=== PATIENT | female | born 1990 | race Caucasian/White ===

== ENCOUNTER 2018-04-09 00:27 | Inpatient (IN) | payer BC ==
[2018-04-09] MEDS ORDERED: Ampicillin 2 GM in Sodium Chloride 0.9% 100 ML IV ONE (02:35)
[2018-04-09] MEDS: Lactated Ringers 1,000 ML IV SCH ×2 (02:57→07:12)
[2018-04-09] MEDS: Sodium Chloride 0.9% 10 ML Syringe FLUSH PRN ×2 (03:00→11:46)
[2018-04-09] MEDS ORDERED: Scopolamine 1.5 MG Transdermal Patch ONE (06:06)
[2018-04-09] MEDS ORDERED: Ampicillin 1 GM in Sodium Chloride 0.9% 50 ML IV SCH (07:00)
[2018-04-09] MEDS: Ampicillin 1 GM Vial ONE ×2 (07:13→07:15)
[2018-04-09] MEDS: Ampicillin 1 GM in Sodium Chloride 0.9% 50 ML IV SCH ×2 (07:14→11:47)
[2018-04-09] MEDS ORDERED: ePHEDrine 50 MG/ML SDV IVPUSH PRN (07:22)
[2018-04-09] MEDS ORDERED: Scopolamine 1.5 MG Transdermal Patch TOP ONE (07:22)
[2018-04-09] MEDS ORDERED: Naloxone 0.4 MG/ML SDV IVPUSH PRN (07:22)
[2018-04-09] MEDS ORDERED: Ondansetron 4 MG/2 ML SDV IVPUSH PRN (07:22)
[2018-04-09] MEDS ORDERED: diphenhydrAMINE 50 MG/ML SDV IVPUSH PRN (07:22)
[2018-04-09] MEDS ORDERED: diphenhydrAMINE 50 MG/ML SDV IV PRN (07:22)
[2018-04-09] MEDS ORDERED: Naltrexone 50 MG Tab PO PRN (07:22)
[2018-04-09] MEDS ORDERED: Nalbuphine 10 MG/1 ML Vial IVPUSH PRN (07:22)
[2018-04-09] MEDS ORDERED: Famotidine/Normal Saline 20 MG in Premix Bag 1 BAG IV PRN (07:22)
[2018-04-09] MEDS ORDERED: Lactated Ringers 500 ML IV SCH ×2 (07:30)
[2018-04-09] MEDS ORDERED: Oxytocin 10 Units/1 ML SDV IM ONE (08:30)
[2018-04-09] MEDS ORDERED: Lidocaine 1% 20 ML MDV INJECT ONE (08:30)
[2018-04-09] MEDS: Ibuprofen 600 MG Tab PO PRN ×2 (09:20→15:43)
--- NOTE | 2018-04-09 12:42 | PCM.DEL ---
L & D Note - General Info Date of Service: 04/09/18 - Delivery Note Labor: Spontaneous Delivery Outcome: Livebirth Delivery Mode: Spontaneous Presentation: Left Occiput Anterior (CHEVY) Nuchal Cord: None Anesthesia Type: Intrathecal, Local Anesthetic: Lidocaine (Xylocaine) 0.5% Plain Local Anesthetic Volume: 5cc Amniotic Fluid Description: Clear Episiotomy Type: None Laceration: 2nd Degree Suture type: Vicryl Suture size: 4-0 Placenta: Intact Cord: 3 Vessels Resuscitation Needed: No : Bulb Syringe - General Info Date of Service: 04/09/18 Admission Dx/Problem (Free Text): 28-year-old 40 weeks comes in spontaneous labor. She's croupy positive was given ampicillin per protocol. Had spontaneous rupture memories and delivered a healthy baby boy in the CHEVY position. No nuchal cord. Blood loss less than 500. - Patient Data Vitals - Most Recent: Last Vital Signs Temp 97.6 F 04/09/18 00:31 Pulse 52 L 04/09/18 07:00 Resp 20 04/09/18 07:00 BP 114/66 04/09/18 07:00 Pulse Ox 99 04/09/18 07:00 Weight - Most Recent: 154 lb I&O - Last 24 Hours: Intake & Output 04/08/18 04/09/18 04/09/18 22:59 06:59 14:59 Intake Total 807 Balance 807 Med Orders - Current: Current Medications Acetaminophen/Codeine Phosphate (Tylenol With Codeine No.3 300mg/30mg) 1 tab PO Q6H PRN PRN Reason: Pain Diphenhydramine HCl (Benadryl) 25 mg IVPUSH ASDIRECTED PRN PRN Reason: EXTRAPYRAMIDAL SIDE EFFECTS Diphenhydramine HCl (Benadryl) 25 mg IV ASDIRECTED PRN PRN Reason: PRURITUS Ephedrine Sulfate (Ephedrine Sulfate) 0 mg IVPUSH ASDIRECTED PRN PRN Reason: Hypotension Lactated Ringer's (Ringers, Lactated) 1,000 mls @ 125 mls/hr IV ASDIRECTED [facility] Last Admin: 04/09/18 07:12 Dose: 125 mls/hr Ampicillin Sodium 1 gm/ Sodium (Chloride) 50 mls @ 100 mls/hr IV Q4H [facility] Last Admin: 04/09/18 11:47 Dose: Not Given Famotidine 20 mg/ Premix 50 mls @ 100 mls/hr IV ONETIME PRN PRN Reason: PRURITIS Lactated Ringer's (Ringers, Lactated) 500 mls @ 999 mls/hr IV .SEECOMMENT JOHN Lactated Ringer's (Ringers, Lactated) 500 mls @ 999 mls/hr IV BOLUS [facility] Ibuprofen (Motrin) 600 mg PO Q6H PRN PRN Reason: Pain Last Admin: 04/09/18 09:20 Dose: 600 mg Miscellaneous Information (Remove Patch) 1 ea TRDERM ASDIRECTED JOHN Nalbuphine HCl (Nubain) 10 mg IVPUSH Q1H PRN PRN Reason: PRURITUS Naloxone HCl (Narcan) 0.1 mg IVPUSH ASDIRECTED PRN PRN Reason: Respiratory Depression Naltrexone HCl (Naltrexone) 25 mg PO ASDIRECTED PRN PRN Reason: REVERSAL Last Admin: 04/09/18 09:17 Dose: 25 mg Ondansetron HCl (Zofran) 4 mg IVPUSH Q4H PRN PRN Reason: Nausea/Vomiting Sodium Chloride (Saline Flush) 10 ml FLUSH ASDIRECTED PRN PRN Reason: Other Last Admin: 04/09/18 11:46 Dose: 10 ml Discontinued Medications Ampicillin Sodium (Ampicillin) Confirm Administered Dose 1 gm .ROUTE .STK-MED ONE Stop: 04/09/18 06:56 Last Admin: 04/09/18 07:15 Dose: Not Given Ampicillin Sodium 2 gm/ Sodium (Chloride) 100 mls @ 200 mls/hr IV ONETIME ONE Stop: 04/09/18 03:04 Last Admin: 04/09/18 03:03 Dose: 200 mls/hr Ampicillin Sodium 1 gm/ Sodium (Chloride) 50 mls @ 100 mls/hr IV Q4H [facility] Scopolamine (Transderm-Scop) Confirm Administered Dose 1.5 mg .ROUTE .STK-MED ONE Stop: 04/09/18 06:07 Last Admin: 04/09/18 07:32 Dose: Not Given Scopolamine (Transderm-Scop) 1.5 mg TOP ONETIME ONE Stop: 04/09/18 07:23 Last Admin: 04/09/18 06:27 Dose: 1.5 mg - Exam General: Alert, Oriented, Cooperative Lungs: Normal Respiratory Effort - Problem List & Annotations (1) Vaginal delivery SNOMED Code(s): 252430311 Code(s): O80 - ENCOUNTER FOR FULL-TERM UNCOMPLICATED DELIVERY Status: Acute Current Visit: Yes (2) Group beta Strep positive SNOMED Code(s): 6879531514601, 3162120325455 Code(s): B95.1 - STREPTOCOCCUS, GROUP B, CAUSING DISEASES CLASSD ELSWHR Status: Acute Current Visit: Yes - Problem List Review Problem List Initiated/Reviewed/Updated: Yes - My Orders Last 24 Hours: My Active Orders 04/09/18 00:33 Admission Status [Patient Status] [ADT] Routine 04/09/18 02:45 Lactated Ringers [Ringers, Lactated] 1,000 ml IV ASDIRECTED 04/09/18 03:00 Admission Status [Patient Status] [ADT] Routine Sodium Chloride 0.9% [Saline Flush] 10 ml FLUSH ASDIRECTED PRN 04/09/18 07:00 Ampicillin 1 gm Sodium Chloride 0.9% [Normal Saline] 50 ml IV Q4H 04/09/18 08:55 Patient Status [ADT] Routine May Shower [RC] ASDIRECTED Up ad Aniket [RC] ASDIRECTED Vital Signs [RC] PFP Nothing Per Rectum [WOMSER] Per Unit Routine Resuscitation Status Routine 04/09/18 08:56 Ice Therapy [OM.PC] Per Unit Routine Perineal Care [OM.PC] Per Unit Routine Peripheral IV Discontinue [OM.PC] Routine Sitz Bath [OM.PC] Per Unit Routine 04/09/18 08:57 Acetaminophen/Codeine [Tylenol with Codeine No.3 300MG/30MG] 1 tab PO Q6H PRN Ibuprofen [Motrin] 600 mg PO Q6H PRN 04/10/18 05:11 HEMOGLOBIN/HEMATOCRIT,HH [HEME] AM - Plan Plan:: 1. Admit for . 2. Full code 3. Hemoglobin and hematocrit in a.m. 4. Up ad aniket. 5. Regular diet. 6. Patient states she'll breast-feed. 7. Normal care.
[2018-04-09] MEDS ORDERED: fentaNYL 100 MCG/2 ML SDV IV ONE (13:39)
[2018-04-09] MEDS ORDERED: Morphine PF 10 MG/10 ML SDV EPIDUR ONE (13:39)
[2018-04-09] MEDS: Acetaminophen/Codeine 300-30 MG Tab PO PRN (15:43)
[2018-04-09] MEDS ORDERED: Calcium Carbonate 500 MG Tab.Chew PO PRN (19:33)
[2018-04-10] MEDS: Acetaminophen/Codeine 300-30 MG Tab PO PRN ×2 (00:14→08:44)
[2018-04-10] MEDS: Ibuprofen 600 MG Tab PO PRN ×2 (06:53→13:02)
--- NOTE | 2018-04-10 07:26 | PCM.PNPP ---
- General Info Date of Service: 04/10/18 Admission Dx/Problem (Free Text): She states she has a little bit of a headache today and just received some medication. Bleeding slowing and abdominal cramping is improved. She has no other concerns today. - Patient Data Vital Signs - Most Recent: Last Vital Signs Temp 98.6 F 04/10/18 00:00 Pulse 50 L 04/10/18 00:00 Resp 20 04/10/18 00:00 BP 114/61 04/10/18 00:00 Pulse Ox 98 04/10/18 00:00 Weight - Most Recent: 154 lb I&O - Last 24 Hours: Intake & Output 04/09/18 04/10/18 04/10/18 22:59 06:59 14:59 Intake Total 1000 1600 Balance 1000 1600 Lab Results - Last 24 Hours: Laboratory Results - last 24 hr 04/10/18 Range/Units 06:50 Hgb 11.3 L (11.5-15.5) g/dL Hct 33.8 (30.0-51.3) % Med Orders - Current: Current Medications Acetaminophen/Codeine Phosphate (Tylenol With Codeine No.3 300mg/30mg) 1 tab PO Q6H PRN PRN Reason: Pain Last Admin: 04/10/18 00:14 Dose: 1 tab Calcium Carbonate/Glycine (Tums) 1,000 mg PO Q2H PRN PRN Reason: Indigestion Ibuprofen (Motrin) 600 mg PO Q6H PRN PRN Reason: Pain Last Admin: 04/10/18 06:53 Dose: 600 mg Discontinued Medications Ampicillin Sodium (Ampicillin) Confirm Administered Dose 1 gm .ROUTE .STK-MED ONE Stop: 04/09/18 06:56 Last Admin: 04/09/18 07:15 Dose: Not Given Diphenhydramine HCl (Benadryl) 25 mg IVPUSH ASDIRECTED PRN PRN Reason: EXTRAPYRAMIDAL SIDE EFFECTS Diphenhydramine HCl (Benadryl) 25 mg IV ASDIRECTED PRN PRN Reason: PRURITUS Ephedrine Sulfate (Ephedrine Sulfate) 0 mg IVPUSH ASDIRECTED PRN PRN Reason: Hypotension Ampicillin Sodium 2 gm/ Sodium (Chloride) 100 mls @ 200 mls/hr IV ONETIME ONE Stop: 04/09/18 03:04 Last Admin: 04/09/18 03:03 Dose: 200 mls/hr Lactated Ringer's (Ringers, Lactated) 1,000 mls @ 125 mls/hr IV ASDIRECTED [facility] Stop: 04/09/18 12:00 Last Admin: 04/09/18 07:12 Dose: 125 mls/hr Ampicillin Sodium 1 gm/ Sodium (Chloride) 50 mls @ 100 mls/hr IV Q4H [facility] Ampicillin Sodium 1 gm/ Sodium (Chloride) 50 mls @ 100 mls/hr IV Q4H [facility] Stop: 04/09/18 08:30 Last Admin: 04/09/18 11:47 Dose: Not Given Famotidine 20 mg/ Premix 50 mls @ 100 mls/hr IV ONETIME PRN PRN Reason: PRURITIS Lactated Ringer's (Ringers, Lactated) 500 mls @ 999 mls/hr IV .SEECOMMENT [facility] Lactated Ringer's (Ringers, Lactated) 500 mls @ 999 mls/hr IV BOLUS [facility] Lidocaine HCl (Xylocaine 1%) 20 ml INJECT ONETIME ONE Stop: 04/09/18 08:31 Last Admin: 04/09/18 08:30 Dose: 20 ml Miscellaneous Information (Remove Patch) 1 ea TRDERM ASDIRECTED [facility] Nalbuphine HCl (Nubain) 10 mg IVPUSH Q1H PRN PRN Reason: PRURITUS Naloxone HCl (Narcan) 0.1 mg IVPUSH ASDIRECTED PRN PRN Reason: Respiratory Depression Naltrexone HCl (Naltrexone) 25 mg PO ASDIRECTED PRN PRN Reason: REVERSAL Last Admin: 04/09/18 09:17 Dose: 25 mg Ondansetron HCl (Zofran) 4 mg IVPUSH Q4H PRN PRN Reason: Nausea/Vomiting Oxytocin (Pitocin) 10 unit IM ONETIME ONE Stop: 04/09/18 08:31 Last Admin: 04/09/18 08:30 Dose: 10 unit Scopolamine (Transderm-Scop) Confirm Administered Dose 1.5 mg .ROUTE .STK-MED ONE Stop: 04/09/18 06:07 Last Admin: 04/09/18 07:32 Dose: Not Given Scopolamine (Transderm-Scop) 1.5 mg TOP ONETIME ONE Stop: 04/09/18 07:23 Last Admin: 04/09/18 06:27 Dose: 1.5 mg Sodium Chloride (Saline Flush) 10 ml FLUSH ASDIRECTED PRN PRN Reason: Other Last Admin: 04/09/18 11:46 Dose: 10 ml - Interaction Disposition, : in Room with Family Support Person: - Recovery Exam Fundal Tone: Firm Fundal Level: At Umbilicus Fundal Placement: Midline Lochia Amount: Small Lochia Color: Rubra/Red Perineum Description: Edematous Episiotomy/Laceration: Approximated Bladder Status: Voiding Urinary Elimination: Voided - Exam General: Alert, Oriented Lungs: Normal Respiratory Effort GI/Abdominal Exam: Other (On this is from.) Extremities: No Pedal Edema - Problem List & Annotations (1) Vaginal delivery SNOMED Code(s): 037198376 Code(s): O80 - ENCOUNTER FOR FULL-TERM UNCOMPLICATED DELIVERY Status: Acute Current Visit: Yes (2) Group beta Strep positive SNOMED Code(s): 5393956705014, 5661212026338 Code(s): B95.1 - STREPTOCOCCUS, GROUP B, CAUSING DISEASES CLASSD ELSWHR Status: Acute Current Visit: Yes - Problem List Review Problem List Initiated/Reviewed/Updated: Yes - My Orders Last 24 Hours: My Active Orders 04/09/18 08:55 Patient Status [ADT] Routine May Shower [RC] ASDIRECTED Up ad Trisha [RC] ASDIRECTED Vital Signs [RC] PFP Nothing Per Rectum [WOMSER] Per Unit Routine Resuscitation Status Routine 04/09/18 08:56 Ice Therapy [OM.PC] Per Unit Routine Perineal Care [OM.PC] Per Unit Routine Peripheral IV Discontinue [OM.PC] Routine Sitz Bath [OM.PC] Per Unit Routine 04/09/18 08:57 Acetaminophen/Codeine [Tylenol with Codeine No.3 300MG/30MG] 1 tab PO Q6H PRN Ibuprofen [Motrin] 600 mg PO Q6H PRN 04/09/18 19:33 Calcium Carbonate [Tums] 1,000 mg PO Q2H PRN - Plan Plan:: Continue current care.
[2018-04-10] MEDS: Acetaminophen/Aspirin/Caffeine 250-250-65 MG Tab PO PRN (19:48)
--- NOTE | 2018-04-10 20:48 | PCM.SN ---
- Free Text/Narrative Note: Visited patient this evening regaurding headache that started yesterday afternoon.Patient received spinal anesthetic yesterday AM and has a history of migraine headaches and states headache is similar to her migraines except there is also a neck component to her discomfort.Patient is able to be up and about, presently taking a bath,though headache is less when lieing down.Orders of lyrica placed and also excedrin(Excedrin is what she takes for her migraines) .Encouraged fluid intake and caffeine.Will visit patient again in AM.
[2018-04-10] MEDS: Pregabalin 50 MG Cap PO SCH (21:13)
[2018-04-11] MEDS: Acetaminophen/Codeine 300-30 MG Tab PO PRN ×2 (01:21→09:58)
--- NOTE | 2018-04-11 08:38 | PCM.PNPP ---
- General Info Date of Service: 04/11/18 Admission Dx/Problem (Free Text): Visions had a mild headache. Anesthesia did see her and gave her some Lyrica. Headaches improving with Excedrin. She thinks is a migraine. She has no other concerns. Bleeding slowing no leg swelling or abdominal cramping. - Patient Data Vital Signs - Most Recent: Last Vital Signs Temp 98.1 F 04/11/18 00:00 Pulse 65 04/11/18 00:00 Resp 20 04/11/18 00:00 BP 110/58 L 04/11/18 00:00 Pulse Ox 97 04/11/18 00:00 Weight - Most Recent: 154 lb Med Orders - Current: Current Medications Acetaminophen/Aspirin/Caffeine (Excedrin Extra Strength) 1 tab PO Q4H PRN PRN Reason: Headache Last Admin: 04/10/18 19:48 Dose: 1 tab Acetaminophen/Codeine Phosphate (Tylenol With Codeine No.3 300mg/30mg) 1 tab PO Q6H PRN PRN Reason: Pain Last Admin: 04/11/18 01:21 Dose: 1 tab Calcium Carbonate/Glycine (Tums) 1,000 mg PO Q2H PRN PRN Reason: Indigestion Ibuprofen (Motrin) 600 mg PO Q6H PRN PRN Reason: Pain Last Admin: 04/10/18 13:02 Dose: 600 mg Pregabalin (Lyrica) 50 mg PO TID JOHN Last Admin: 04/10/18 21:13 Dose: 50 mg Discontinued Medications Ampicillin Sodium (Ampicillin) Confirm Administered Dose 1 gm .ROUTE .STK-MED ONE Stop: 04/09/18 06:56 Last Admin: 04/09/18 07:15 Dose: Not Given Diphenhydramine HCl (Benadryl) 25 mg IVPUSH ASDIRECTED PRN PRN Reason: EXTRAPYRAMIDAL SIDE EFFECTS Diphenhydramine HCl (Benadryl) 25 mg IV ASDIRECTED PRN PRN Reason: PRURITUS Ephedrine Sulfate (Ephedrine Sulfate) 0 mg IVPUSH ASDIRECTED PRN PRN Reason: Hypotension Ampicillin Sodium 2 gm/ Sodium (Chloride) 100 mls @ 200 mls/hr IV ONETIME ONE Stop: 04/09/18 03:04 Last Admin: 04/09/18 03:03 Dose: 200 mls/hr Lactated Ringer's (Ringers, Lactated) 1,000 mls @ 125 mls/hr IV ASDIRECTED [facility] Stop: 04/09/18 12:00 Last Admin: 04/09/18 07:12 Dose: 125 mls/hr Ampicillin Sodium 1 gm/ Sodium (Chloride) 50 mls @ 100 mls/hr IV Q4H [facility] Ampicillin Sodium 1 gm/ Sodium (Chloride) 50 mls @ 100 mls/hr IV Q4H [facility] Stop: 04/09/18 08:30 Last Admin: 04/09/18 11:47 Dose: Not Given Famotidine 20 mg/ Premix 50 mls @ 100 mls/hr IV ONETIME PRN PRN Reason: PRURITIS Lactated Ringer's (Ringers, Lactated) 500 mls @ 999 mls/hr IV .SEECOMMENT [facility] Lactated Ringer's (Ringers, Lactated) 500 mls @ 999 mls/hr IV BOLUS [facility] Lidocaine HCl (Xylocaine 1%) 20 ml INJECT ONETIME ONE Stop: 04/09/18 08:31 Last Admin: 04/09/18 08:30 Dose: 20 ml Miscellaneous Information (Remove Patch) 1 ea TRDERM ASDIRECTED [facility] Nalbuphine HCl (Nubain) 10 mg IVPUSH Q1H PRN PRN Reason: PRURITUS Naloxone HCl (Narcan) 0.1 mg IVPUSH ASDIRECTED PRN PRN Reason: Respiratory Depression Naltrexone HCl (Naltrexone) 25 mg PO ASDIRECTED PRN PRN Reason: REVERSAL Last Admin: 04/09/18 09:17 Dose: 25 mg Ondansetron HCl (Zofran) 4 mg IVPUSH Q4H PRN PRN Reason: Nausea/Vomiting Oxytocin (Pitocin) 10 unit IM ONETIME ONE Stop: 04/09/18 08:31 Last Admin: 04/09/18 08:30 Dose: 10 unit Scopolamine (Transderm-Scop) Confirm Administered Dose 1.5 mg .ROUTE .STK-MED ONE Stop: 04/09/18 06:07 Last Admin: 04/09/18 07:32 Dose: Not Given Scopolamine (Transderm-Scop) 1.5 mg TOP ONETIME ONE Stop: 04/09/18 07:23 Last Admin: 04/09/18 06:27 Dose: 1.5 mg Sodium Chloride (Saline Flush) 10 ml FLUSH ASDIRECTED PRN PRN Reason: Other Last Admin: 04/09/18 11:46 Dose: 10 ml - Infant Interaction Disposition, : in Room with Family Support Person: - Recovery Exam Fundal Tone: Firm Fundal Level: 2 Fingerbreadths Below Umbilicus Fundal Placement: Midline Lochia Amount: Small Lochia Color: Rubra/Red Perineum Description: Redness, Edematous Episiotomy/Laceration: Approximated Bladder Status: Voiding Urinary Elimination: Voided - Exam General: Alert, Oriented Neck: Supple GI/Abdominal Exam: Other (Fundus gravid) Extremities: No Pedal Edema - Problem List & Annotations (1) Vaginal delivery SNOMED Code(s): 977946036 Code(s): O80 - ENCOUNTER FOR FULL-TERM UNCOMPLICATED DELIVERY Status: Acute Current Visit: Yes (2) Group beta Strep positive SNOMED Code(s): 1132591853352, 7647321318694 Code(s): B95.1 - STREPTOCOCCUS, GROUP B, CAUSING DISEASES CLASSD ELSWHR Status: Acute Current Visit: Yes - Problem List Review Problem List Initiated/Reviewed/Updated: Yes - My Orders Last 24 Hours: My Active Orders 04/11/18 08:06 Ready for Discharge [RC] PER UNIT ROUTINE - Plan Plan:: Discharged home. Recheck in 6 weeks for care.
--- NOTE | 2018-04-11 08:40 | PCM.DCSUM1 ---
Discharge Summary - Hospital Course Free Text/Narrative:: Hospital course-patient did well. Post day one hemoglobin was over 11. She'll little bit of a headache that was controlled with ibuprofen, or Tylenol or Excedrin. Did have anesthesia see her and they ordered Lyrica 1. Patient' s headache was controlled enough with the medication will discharge home. She had no problems with she was here. Brief History: 28-year-old group A positive came in spontaneous labor with spontaneous rupture membranes. She was treated with ampicillin per protocol and had a normal male child. Please see delivery note. Diagnosis: Stroke: No - Discharge Data Discharge Date: 04/11/18 Discharge Disposition: Home, Self-Care 01 Condition: Good - Discharge Diagnosis/Problem(s) (1) Vaginal delivery SNOMED Code(s): 353313773 ICD Code: O80 - ENCOUNTER FOR FULL-TERM UNCOMPLICATED DELIVERY Status: Acute Current Visit: Yes (2) Group beta Strep positive SNOMED Code(s): 8360990992289, 1651963237953 ICD Code: B95.1 - STREPTOCOCCUS, GROUP B, CAUSING DISEASES CLASSD ELSWHR Status: Acute Current Visit: Yes - Patient Instructions Diet: Regular Diet as Tolerated Activity: As Tolerated Driving: May Drive Today Showering/Bathing: May Shower Other/Special Instructions: 1. recheck in 6 weeks for . - Discharge Plan Home Medications: Home Meds Ibuprofen [Motrin] 600 mg PO Q6H PRN tablet 04/11/18 [Rx] Patient Handouts: What You Need to Know About Infant Formula Feeding, Depression, Baby Blues, Home Care Instructions for Mom, Vaginal Delivery, Care After, Pregabalin capsules, Care After Vaginal Delivery, Hand Washing - Discharge Summary/Plan Comment DC Time >30 min.: Yes Discharge Summary/Plan Comment: Discharge to home. Recheck in 6 weeks for care. - Patient Data Vitals - Most Recent: Last Vital Signs Temp 98.1 F 04/11/18 00:00 Pulse 65 04/11/18 00:00 Resp 20 04/11/18 00:00 BP 110/58 L 04/11/18 00:00 Pulse Ox 97 04/11/18 00:00 Weight - Most Recent: 154 lb Med Orders - Current: Current Medications Acetaminophen/Aspirin/Caffeine (Excedrin Extra Strength) 1 tab PO Q4H PRN PRN Reason: Headache Last Admin: 04/10/18 19:48 Dose: 1 tab Acetaminophen/Codeine Phosphate (Tylenol With Codeine No.3 300mg/30mg) 1 tab PO Q6H PRN PRN Reason: Pain Last Admin: 04/11/18 01:21 Dose: 1 tab Calcium Carbonate/Glycine (Tums) 1,000 mg PO Q2H PRN PRN Reason: Indigestion Ibuprofen (Motrin) 600 mg PO Q6H PRN PRN Reason: Pain Last Admin: 04/10/18 13:02 Dose: 600 mg Pregabalin (Lyrica) 50 mg PO TID JOHN Last Admin: 04/10/18 21:13 Dose: 50 mg Discontinued Medications Ampicillin Sodium (Ampicillin) Confirm Administered Dose 1 gm .ROUTE .STK-MED ONE Stop: 04/09/18 06:56 Last Admin: 04/09/18 07:15 Dose: Not Given Diphenhydramine HCl (Benadryl) 25 mg IVPUSH ASDIRECTED PRN PRN Reason: EXTRAPYRAMIDAL SIDE EFFECTS Diphenhydramine HCl (Benadryl) 25 mg IV ASDIRECTED PRN PRN Reason: PRURITUS Ephedrine Sulfate (Ephedrine Sulfate) 0 mg IVPUSH ASDIRECTED PRN PRN Reason: Hypotension Ampicillin Sodium 2 gm/ Sodium (Chloride) 100 mls @ 200 mls/hr IV ONETIME ONE Stop: 04/09/18 03:04 Last Admin: 04/09/18 03:03 Dose: 200 mls/hr Lactated Ringer's (Ringers, Lactated) 1,000 mls @ 125 mls/hr IV ASDIRECTED [facility] Stop: 04/09/18 12:00 Last Admin: 04/09/18 07:12 Dose: 125 mls/hr Ampicillin Sodium 1 gm/ Sodium (Chloride) 50 mls @ 100 mls/hr IV Q4H [facility] Ampicillin Sodium 1 gm/ Sodium (Chloride) 50 mls @ 100 mls/hr IV Q4H [facility] Stop: 04/09/18 08:30 Last Admin: 04/09/18 11:47 Dose: Not Given Famotidine 20 mg/ Premix 50 mls @ 100 mls/hr IV ONETIME PRN PRN Reason: PRURITIS Lactated Ringer's (Ringers, Lactated) 500 mls @ 999 mls/hr IV .SEECOMMENT [facility] Lactated Ringer's (Ringers, Lactated) 500 mls @ 999 mls/hr IV BOLUS [facility] Lidocaine HCl (Xylocaine 1%) 20 ml INJECT ONETIME ONE Stop: 04/09/18 08:31 Last Admin: 04/09/18 08:30 Dose: 20 ml Miscellaneous Information (Remove Patch) 1 ea TRDERM ASDIRECTED [facility] Nalbuphine HCl (Nubain) 10 mg IVPUSH Q1H PRN PRN Reason: PRURITUS Naloxone HCl (Narcan) 0.1 mg IVPUSH ASDIRECTED PRN PRN Reason: Respiratory Depression Naltrexone HCl (Naltrexone) 25 mg PO ASDIRECTED PRN PRN Reason: REVERSAL Last Admin: 04/09/18 09:17 Dose: 25 mg Ondansetron HCl (Zofran) 4 mg IVPUSH Q4H PRN PRN Reason: Nausea/Vomiting Oxytocin (Pitocin) 10 unit IM ONETIME ONE Stop: 04/09/18 08:31 Last Admin: 04/09/18 08:30 Dose: 10 unit Scopolamine (Transderm-Scop) Confirm Administered Dose 1.5 mg .ROUTE .STK-MED ONE Stop: 04/09/18 06:07 Last Admin: 04/09/18 07:32 Dose: Not Given Scopolamine (Transderm-Scop) 1.5 mg TOP ONETIME ONE Stop: 04/09/18 07:23 Last Admin: 04/09/18 06:27 Dose: 1.5 mg Sodium Chloride (Saline Flush) 10 ml FLUSH ASDIRECTED PRN PRN Reason: Other Last Admin: 04/09/18 11:46 Dose: 10 ml - Exam General: Reports: Alert, Oriented Lungs: Reports: Normal Respiratory Effort GI/Abdominal Exam: Other (Fundus firm) Extremities: No Pedal Edema
--- NOTE | 2018-04-11 09:16 | PCM.SN ---
- Free Text/Narrative Note: visited with patient this morning.Patient is sitting up eating and smiling.Headache is somewhat better.States similar to her migraines with a neck component.Patient does not want any further treatment.Reviewed Dr. Hendricks's discharge note.Advised patient to call if symptoms worsen.
[2018-04-11] MEDS: Pregabalin 50 MG Cap PO SCH ×2 (09:59→14:13)
[2018-04-11] MEDS: Acetaminophen/Aspirin/Caffeine 250-250-65 MG Tab PO PRN (11:57)
== END 2018-04-11 13:40 | disposition home or self-care (01) | DRG 560 ==
LOC: FB.OBCHECK 00:27 → FB.OB 00:29 → FB.OBCHECK 02:59 → FB.OB 03:00
PROVIDERS: ADMIT Family Medicine; ATTEND Family Medicine
PROC: 10E0XZZ Delivery of Products of Conception, External Approach (ICD-10-PCS; principal; 2018-04-09)
PROC: 0KQM0ZZ Repair Perineum Muscle, Open Approach (ICD-10-PCS; 2018-04-09)
DX: O99.824 Streptococcus B carrier state complicating childbirth (principal); O70.1 Second degree perineal laceration during delivery; Z3A.40 40 weeks gestation of pregnancy; Z37.0 Single live birth; O90.89 Other complications of the puerperium, not elsewhere classified; G43.909 Migraine, unspecified, not intractable, without status migrainosus
CPT/HCPCS: 36415; 59409; 85014; 85018; A9270-GY; J0290; J2001; J2270; J2590; J3010; J7030; J7050; J7120